=== PATIENT | female | born 1930 | race Hispanic/Latino ===

== ENCOUNTER 2017-10-10 17:01 | Emergency (ER) | payer OTHER ==
[~2017-10-10] VITALS: Ht 154.9 cm; Wt 63.5 kg
[~2017-10-10 17:01] MED LIST: AMITRIPTYLINE H10 MG PO; ASPIRIN325 M2; B VITAMIN; CARVEDILOL25 MG PO; CLONIDINE HCL0.1 MG PO; CLOPIDOGREL75 MG PO; CYCLOBENZAPRINE; FENOFIBRATE54 MG PO; FISH OIL; GLIMEPIRIDE1 MG PO; HYDRALAZINE HC100 MG PO; HYDROCODONE; LEVOTHYROXINE75 MCG PO; LISINOPRIL-HCT1 EAC1 PO; PRAVASTATIN SOD40 MG PO; TRADJENTA5 MG PO; Z.0.ACTOS30 MG; Z.0.HYDRALAZINE HC10; Z.0.PRAVASTATIN SOD4; Z.1.VERAPAMIL ER240
[2017-10-10] MEDS ORDERED: CYCLOBENZAPRINE HCL 10 MG TAB PO ONE (17:45)
[2017-10-10] MEDS ORDERED: HYDROCODONE/APAP 5MG-325MG TAB PO ONE (17:45)
[2017-10-10 17:57] VITALS: BP 164/67
== END 2017-10-10 18:06 | disposition home or self-care (01) ==
LOC: ER 17:01
DX: M54.6 Pain in thoracic spine (principal); M54.5 Low back pain; I51.9 Heart disease, unspecified
CPT/HCPCS: 99283